=== PATIENT | male | born 1975 | race Caucasian/White ===

== ENCOUNTER 2023-12-13 16:02 | Emergency (ER) | payer BC, SELFPAY ==
--- NOTE | ~2023-12-13 | CT_ITS ---
EXAMINATION: CT pelvis w con INDICATION: Perineal abscess extending into the scrotum TECHNIQUE: Computed tomographic images of the pelvis were obtained after the administration of 100 cc of Omnipaque 350 intravenous contrast. The dose-length product (DLP) was 1387.28 mGy-cm. Automated e xposure control and iterative reconstruction technique were employed. COMPARISON: None FINDINGS: There is a 6.9 x 4.8 cm perineal abscess to the right of midline. There is surrounding soft tissue edema which involves the scrotum. There is skin thickening of the medial right thigh. There a re enlarged bilateral inguinal lymph nodes. Diffuse hepatic steatosis is noted. There are changes of anterior and posterior fusion from L4 through S1. IMPRESSION: 1. 6.9 x 4.8 cm perineal abscess to the right of midline. Surrounding cellulitis involves the scrotum and medial right thigh. Reviewed, dictated and finalized at location [facility] IMPRESSION: 1. 6.9 x 4.8 cm perineal abscess to the right of midline. Surrounding celluliti s involves the scrotum and medial right thigh.
[2023-12-13 16:03] VITALS: BP 210/136; PULSE 124; RESP 18; TEMP 36.9; O2SAT 95
[2023-12-13 16:25] VITALS: BP 187/110
--- NOTE | 2023-12-13 17:40 | ECG_ITS ---
Measurements Intervals [place] Rate: 104 P: 37 GA: 158 QRS: -13 QRSD: 114 T: 27 QT: 361 QTc: 476 Interpretive Statements SINUS TACHYCARDIA POSSIBLE LEFT ATRIAL ENLARGEMENT INTRAVENTRICULAR CONDUCTION DELAY DELAYED PRECORDIAL R/S TRANSITION BORDERLINE ST-T WAVE ABNORMALITY- HIGH LATERAL LEADS BORDERLINE ECG NO PREVIOUS ECG AVAILABLE FOR COMPARISON Electronically Signed On 12-13-2023 19:00:32 [employer] by Kiko Knapp D.O.
--- NOTE | 2023-12-13 17:42 | ED.SKABFB ---
HPI - Skin/Abscess/Foreign Bdy General Chief complaint: Skin/Abscess/Foreign Body Stated complaint: perineal abscess Time Seen by Provider: 12/13/23 17:00 History of Present Illness HPI narrative: 48 y/o M reports for evaluation for an abscess to his perineum x7 days. Patient states the area is extremely painful, especially when he has a bowel movement or times to urinate secondary to the pressure. She he states that the abscess has progressively worsened and is now extending into his testicles. Patient states he reports history of perineum abscesses, however has never had to go to the OR. States he normally will drain on their own and self resolve. The patient denies abdominal pain, fever, nausea or vomiting. He was found to be very hypertensive in triage. He denies history of hypertension, and believes this is secondary to his pain. Denies chest pain or shortness of breath. Related Data Allergies Allergy/AdvReac Type Severity Reaction Status Date / Time No Known Allergies Allergy Verified 12/13/23 16:07 Review of Systems Review of Systems: CONSTITUTIONAL: Denies fever, chills, or sweats. EYES: Denies visual changes, redness, or discharge. ENT: Denies rhinorrhea, congestion, sore throat, or otalgia. CARDIOVASCULAR: Denies chest pain, palpitations, or edema. RESPIRATORY: Denies cough or dyspnea. GASTROINTESTINAL: See HPI GENITOURINARY: See HPI SKIN: Denies rash or itching. MUSCULOSKELETAL: Denies back pain, joint pain, or myalgia. NEUROLOGIC: Denies headache, numbness, or weakness. PSYCHIATRIC: Denies anxiety or depression. Exam Narrative: GENERAL: Nontoxic appearing. Appears very uncomfortable, bent over exam bed due to discomfort HEAD: Normocephalic, atraumatic. EYES: PERRLA and EOMI. ENT: Nares clear, no rhinorrhea or epistaxis. Mucous membranes moist. NECK: Supple. CHEST: Clear to auscultation. No respiratory distress. HEART: Regular rate and rhythm. No murmur heard. Normal peripheral pulses. ABDOMEN: Soft, nontender, nondistended, normal active bowel sounds. : Large area of fluctuation and induration in the perineum that extends just inferior to the rectum and into the right side of the scrotum. There is tenderness throughout the scrotum and edema and erythema to the scrotum. Induration and erythema extending into his R thigh. No active spontaneous drainage. No crepitus or necrosis. No direct rectal involvement. EXTREMITIES: Normal range of motion. No edema. SKIN: Warm, dry, no rash. NEURO: No focal deficits. Alert and oriented x3 Course Vital Signs Vital signs: Vital Signs Temperature 98.5 F 12/13/23 16:03 Pulse Rate 124 H 12/13/23 16:03 Respiratory Rate 18 12/13/23 16:03 Blood Pressure 210/136 H 12/13/23 16:03 Pulse Oximetry 95 12/13/23 16:03 Temperature 98.3 F 12/13/23 19:50 Pulse Rate 97 12/13/23 19:50 Respiratory Rate 17 12/13/23 19:50 Blood Pressure 174/95 H 12/13/23 19:50 Pulse Oximetry 95 12/13/23 19:50 MDM - Skin/Abscess/Foreign Bdy MDM Narrative Medical decision making narrative: 48-year-old male reports for evaluation for a perineal abscess x7 days. See HPI for further history. Triage vital significant for hypertension of 210/136 and tachycardia 124. Patient attributes this to his pain, denies history of hypertension. Denies chest pain or shortness of breath. He is afebrile. Exam is significant for a large perineal abscess that extends into his scrotum and just inferior to his rectum. There is no areas of necrosis visualized, no crepitus. CBC with leukocytosis of 12.5. Chemistry shows sodium of 134, potassium of 3.2, chloride of 97 and glucose of 230. Bicarb and gap are normal. No prior history of diabetes. Magnesium is normal at 1.8. Potassium orally repleted. CRP is elevated to 13.5 and ESR is elevated at 29. UA is with glucosuria, proteinuria ketonuria, otherwise unremarkable. Lactic acid is normal at 1.5. EKG shows sinus tachyc
[2023-12-13] MEDS: SODIUM CHLORIDE 0.9% IV 1,000 ML 999 ML IV CONT (17:59)
[2023-12-13] MEDS: MORPHINE SULFATE (*CRX) 4 MG/ML INJ IV PUSH ×2 (17:59→19:49)
[2023-12-13 18:07] LABS: Basophils Absolute Auto 0.1 K/mm3 (0.0-0.1); Basophils Percent Auto 0.6 % (0.2-1.2); Eosinophils Absolute Auto 0.4 K/mm3 (0-0.3); Eosinophils Percent Auto 3.1 % (0-4.4); Hematocrit 45.1 % (42.0-52.0); Hemoglobin 15.3 g/dL (14.0-18.0); Immature Granulocyte Absolute 0.04 K/mm3 (0.00-0.031); Immature Granulocyte Percent A 0.3 % (0-0.5); Lymphocytes Absolute Auto 2.88 K/mm3 (0.9-3.2); Mean Corpuscular HGB Conc 33.9 g/dl (32-36); Mean Corpuscular Hemoglobin 31.1 pg (26-34); Mean Corpuscular Volume 91.7 fl (80-100); Mean Platelet Volume 11.8 fl (7.4-10.4); Monocytes Absolute Auto 1.1 K/mm3 (0.1-0.6); Monocytes Percent Auto 8.8 % (2.6-8.5); Neutrophils Percent Auto 64.2 % (45.5-73.1); Platelet Count Result 227 k/mm3 (150-375); Red Blood Count 4.92 M/mm3 (4.6-6.20); Red Cell Distribution Width 13.3 % (11.5-14.5); White Blood Count 12.5 K/mm3 (4.5-10.0)
[2023-12-13 18:14] LABS: Lactic Acid Reflex 1.5 mmol/L (0.7-2.0)
[2023-12-13 18:21] LABS: Alanine Aminotransferase 42 U/L (6-50); Albumin Level 4.2 g/dL (3.5-5.1); Alkaline Phosphatase 101 U/L (38-126); Anion Gap 10 mmol/L (8-16); Aspartate Amino Transferase 31 U/L (17-59); Bilirubin,Total 0.7 mg/dL (0.2-1.3); Blood Urea Nitrogen 14 mg/dL (9-20); Calcium 9.4 mg/dL (8.4-10.2); Carbon Dioxide 27 mmol/L (22-30); Chloride 97 mmol/L (98-107); Estimated CRCL calculation 147 ml/min; Estimated Glomerular Filt Rate > 60; Glucose 230 mg/dL (65-110); Potassium 3.2 mmol/L (3.4-5.0); Sodium 134 mmol/L (137-145)
[2023-12-13 18:30] VITALS: BP 181/97; PULSE 89; O2SAT 98
[2023-12-13 18:33] LABS: CRP 13.5 mg/dL (<1.0)
[2023-12-13 18:40] LABS: Erythrocyte Sedimentation Rate 29 mm/hr (0-20)
[2023-12-13] MEDS: POTASSIUM CHLORIDE 20 MEQ PACKET (FOR LIQUID) PO (18:50)
[2023-12-13 18:56] LABS: Magnesium 1.8 mg/dL (1.6-2.3)
[2023-12-13 19:25] LABS: Appearance Urine Clear (Clear); Bacteria Urine None Seen /hpf; Bilirubin Urine Negative (Negative); Blood Urine Negative (Negative); Color Urine Dark Yellow (Yellow); Glucose Urine UA 2+ mg/dL (Negative); Ketones Urine 3+ mg/dL (Negative); Leukocyte Esterase Ur Negative LEU/UL (Negative); Nitrate Urine Negative (Negative); Protein Urine 1+ mg/dL (Negative); RBC Urine 0-2 /hpf (0-2); Specific Grav Ur 1.027 (1.001-1.035); Squamous Epithelial Cell Urine None seen /hpf (Few); WBC Urine 0-5 /hpf
[2023-12-13 19:37] LABS: Add Urine Microscopic? YES
[2023-12-13 19:50] VITALS: BP 174/95; PULSE 97; RESP 17; TEMP 36.8; O2SAT 95
--- NOTE | 2023-12-13 21:51 | PC.NURSE ---
pt decided to leave AMA today. they state that they thought they had good care but they need to eat and do not think they'll be able to fast for surgery. pt was educated that this infection could cause sepsis and lead to . pt states they want to go to another hospital because they have to eat tonight. pt signed AMA papers and was educated on risks
== END 2023-12-13 21:59 | disposition left against medical advice (07) ==
PROVIDERS: Emergency Provider Physician Assistant
DX: L02.215 Cutaneous abscess of perineum (principal); R10.9 Unspecified abdominal pain; R00.0 Tachycardia, unspecified; R94.31 Abnormal electrocardiogram [ECG] [EKG]; I45.9 Conduction disorder, unspecified
CPT/HCPCS: 36415; 72193; 80053; 81001; 83605; 83735; 85025; 85652; 86140; 93005; 96361; 96374; 96376; 99284; A9270; J2270; J7030; Q9967